=== PATIENT | female | born 1985 | race Caucasian/White ===

== ENCOUNTER 2016-06-09 12:04 | Emergency (ER) | payer SELFPAY ==
--- NOTE | 2016-06-09 12:13 | ER Document Report ---
ED Medical Screen (RME) - General Stated Complaint: TOOTH ACHE Mode of Arrival: Ambulatory Information source: Patient Notes: Patient presents to the emergency department with left-sided lower dental pain since . She reports she bit down on a chicken wing and cracked her molar. She reports she's been using Orajel since that time. She now reports pain is making her vomit. Troy goldman I have greeted and performed a rapid initial assessment of this patient. A comprehensive ED assessment and evaluation of the patient, analysis of test results and completion of the medical decision making process will be conducted by additional ED providers. TRAVEL OUTSIDE OF THE [place] IN LAST 30 DAYS: No - Related Data Allergies/Adverse Reactions: diphenhydramine HCl [From Benadryl] Allergy (Verified 11/27/15 13:26) Penicillins Allergy (Verified 11/27/15 13:26) Past Medical History Neurological Medical History: Denies: Hx Seizures GI Medical History: Reports: Hx Gastritis, Hx Gastroesophageal Reflux Disease, Hx Ulcer, Hx Endoscopy Musculoskeltal Medical History: Reports Hx Musculoskeletal Deformity, Reports Hx Musculoskeletal Trauma Traumatic Medical History: Reports: Hx Fractures - Multiple Past Surgical History: Reports: Hx Section - 2005, Hx Dilation and Curettage, Hx Orthopedic Surgery - Finger surgery for broken finger - Immunizations Immunizations up to date: Yes Hx Diphtheria, Pertussis, Tetanus Vaccination: Yes - 2014 Physical Exam - Vital signs Vitals: Temp Pulse Resp BP Pulse Ox 99.3 F 86 18 138/81 H 98 06/09/16 12:08 06/09/16 12:08 06/09/16 12:08 06/09/16 12:08 06/09/16 12:08 Course - Vital Signs Vital signs: Temp Pulse Resp BP Pulse Ox 99.3 F 86 18 138/81 H 98 06/09/16 12:08 06/09/16 12:08 06/09/16 12:08 06/09/16 12:08 06/09/16 12:08
--- NOTE | 2016-06-09 13:08 | ER Document Report ---
ED Oral Problem - General Chief Complaint: Toothache Stated Complaint: TOOTH ACHE Time seen by provider: 13:04 Mode of Arrival: Ambulatory Information source: Patient Notes: 30 Female presents to ED for left lower wisdom tooth pain since . She states that she bit down on a chicken bone and cracked premolar. She's been using Orajel and ibuprofen since then. States now the pain is to the point that it makes her nauseated. TRAVEL OUTSIDE OF THE [place] IN LAST 30 DAYS: No - HPI Patient complains to provider of: Toothache Onset: Other - states the pain started but she broke the tooth 6 months ago Onset: Gradual Quality of pain: Sharp, Throbbing Severity: Moderate Pain Level: 4 Associated symptoms: Toothache Worsened by: Cold Relieved by: Nothing Similar symptoms previously: Yes Recently seen / treated by doctor/dentist: No - Related Data Allergies/Adverse Reactions: diphenhydramine HCl [From Benadryl] Allergy (Verified 06/09/16 12:11) Penicillins Allergy (Verified 06/09/16 12:11) Past Medical History - General Information source: Patient - Social History Smoking Status: Never Smoker Cigarette use (# per day): No Chew tobacco use (# tins/day): No Smoking Education Provided: No Frequency of alcohol use: None Drug Abuse: Marijuana Occupation: management Lives with: Alone Family History: Malignancy Patient has suicidal ideation: No Patient has homicidal ideation: No - Past Medical History Cardiac Medical History: Reports: None Pulmonary Medical History: Reports: None EENT Medical History: Reports: None Neurological Medical History: Reports: None Endocrine Medical History: Reports: None Renal/ Medical History: Reports: None Malignancy Medical History: Reports: None GI Medical History: Reports: Hx Gastritis, Hx Gastroesophageal Reflux Disease, Hx Ulcer, Hx Endoscopy Musculoskeltal Medical History: Reports Hx Musculoskeletal Deformity, Reports Hx Musculoskeletal Trauma Skin Medical History: Reports None Psychiatric Medical History: Reports: None Traumatic Medical History: Reports: Hx Fractures - Multiple Infectious Medical History: Reports: None Past Surgical History: Reports: Hx Section - 2006, Hx Dilation and Curettage, Hx Orthopedic Surgery - Finger surgery for broken finger - Immunizations Immunizations up to date: Yes Hx Diphtheria, Pertussis, Tetanus Vaccination: Yes - 2014 Review of Systems - Review of Systems Constitutional: No symptoms reported EENT: Dental problem Cardiovascular: No symptoms reported Respiratory: No symptoms reported Gastrointestinal: No symptoms reported Genitourinary: No symptoms reported Female Genitourinary: No symptoms reported Musculoskeletal: No symptoms reported Skin: No symptoms reported Hematologic/Lymphatic: No symptoms reported Neurological/Psychological: No symptoms reported -: Yes All other systems reviewed and negative Physical Exam - Vital signs Vitals: Temp Pulse Resp BP Pulse Ox 99.3 F 86 18 138/81 H 98 06/09/16 12:08 06/09/16 12:08 06/09/16 12:08 06/09/16 12:08 06/09/16 12:08 Interpretation: Normal - General General appearance: Appears well, Alert - HEENT Head: Normocephalic, Atraumatic Eyes: Normal Pupils: PERRL Ears: Normal External canal: Normal Tympanic membrane: Normal Sinus: Normal Nasal: Normal Mouth/Lips: Normal Teeth diagram: 1 - Part of tooth broken off minimal redness surrounding the tooth no abscess noted Pharynx: Normal Neck: Normal - Respiratory Respiratory status: No respiratory distress Chest status: Nontender Breath sounds: Normal Chest palpation: Normal - Cardiovascular Rhythm: Regular Heart sounds: Normal auscultation Murmur: No - Abdominal Inspection: Normal Distension: No distension Bowel sounds: Normal Tenderness: Nontender Organomegaly: No organomegaly - Back Back: Normal, Nontender - Extremities General upper extremity: Normal inspection, Nontender, Normal color, Normal ROM , Normal temperature General lower extremity: Normal inspection, Nontender, Normal color, Normal ROM , Normal temperature, Normal weight bearing. No: Doron's sign - Neurological Neuro grossly intact: Yes Cognition: Normal Orientation: AAOx4 Uday Coma Scale Eye Opening: Spontaneous [place] Coma Scale Verbal: Oriented Uday Coma Scale Motor: Obeys Commands [place] Coma Scale Total: 15 Speech: Normal Motor strength normal: LUE, RUE, LLE, RLE Sensory: Normal - Psychological Associated symptoms: Normal affect, Normal mood - Skin Skin Temperature: Warm Skin Moisture: Dry Skin Color: Normal Course - Re-evaluation Re-evalutation: 06/09/16 13:52 Patient states she does not have a lot of money for medicine she states she is allergic to penicillin when I told her that clindamycin is expensive but Keflex at third of fourth generation penicillin she states she hurt her Keflex before and she's taken that before. I told her that I could write her some Irvine which is hydrocodone and she stated that that would be good. Then she told the nurse that she was allergic to Irvine made her sick so I offered to give her some Phenergan to go with the Irvine. Then she stated she did not want a nausea medicine to go with her Irvine she wanted a pain medicine that would not make her sick I told her she could take ibuprofen 10. She states she's already been taken that. Then she decided that the she is allergic to Keflex which she had early told me that she was not allergic to. I explained to her that just because she is allergic to penicillin does not mean you will allergic to Keflex. I said if she had a anaphylactic reaction to penicillin that I would not give her the Keflex otherwise I could write a thickened clindamycin but it was much more expensive she states she could not afford the clindamycin. I had Dr. Hobbs go in and talk with the patient. - Vital Signs Vital signs: Temp Pulse Resp BP Pulse Ox 98 F 68 20 128/88 H 100 06/09/16 14:08 06/09/16 14:08 06/09/16 14:08 06/09/16 14:08 06/09/16 14:08 Discharge - Discharge Clinical Impression: Pain due to dental caries Condition: Stable Disposition: HOME, SELF-CARE Additional Instructions: TOOTHACHE: Your pain is due to dental decay. The tooth must be repaired in order for you to feel better. You will, therefore, be referred to a dentist. We do not have dentists on the staff at [facility]. Severe swelling or drainage around a tooth usually means a dental abscess. This also requires evaluation and treatment by the dentist, but antibiotics may be prescribed while awaiting dental treatment. You should be rechecked immediately if you develop major swelling of the face, increasing pain, a lump in the jaw or gums, headache, difficulty swallowing, or fever. ORAL NARCOTIC MEDICATION: You have been given a prescription for pain control. This medication is a narcotic. It's best taken with food, as nausea can result if taken on an empty stomach. Don't operate machinery or drive within six hours of taking this medication. Do not combine this medicine with alcohol, or with any medication which can cause sedation (such as cold tablets or sleeping pills) unless you get permission from the physician. Narcotics tend to cause constipation. If possible, drink plenty of fluids and eat a diet high in fiber and fruits. Please be aware that prescription narcotics also have the potential for abuse. People become addicted to these medications because of the general sense of wellbeing that they induce. This feeling along with a significant reduction in tension, anxiety, and aggression provides a stimulating seductive quality to these drugs. Once your pain is under control, we encourage you to discard your unused narcotics. Cephalexin The antibiotic you've been prescribed is a member of the cephalosporin class. This type of antibiotic covers a wide variety of infections, including those of the skin, lungs, and urinary tract. It's useful for staph infections. This antibiotic is slightly similar to the penicillin family. In rare cases , a person who is allergic to penicillin will also be allergic to this medication. If you have had a severe allergic reaction to penicillin, and have not taken this antibiotic since that time, notify your doctor. Antibiotics which cover many germs ("broad spectrum" antibiotics) are more likely to cause diarrhea or "yeast" infections. Women prone to vaginal yeast problems may suffer an attack after taking this antibiotic. In infants, oral thrush (white spots "stuck" on the cheek) or yeast diaper rash may result. See your doctor if these problems occur. Call at once if you develop itching, hives , shortness of breath, or lightheadedness. FOLLOW-UP CARE: You have been referred for follow-up care to the dentists listed below. Call the dentists office for an appointment as you were instructed or within the next two days. If you experience worsening or a significant change in your symptoms, notify the physician immediately or return to the Emergency Department at any time for re-evaluation. [facility] [address] [place] [address] [facility] [address] [facility] [place] [id number] [facility] [address] [place] [facility] [address] [place] [email or web address] [address] [place] [address] Friday- 8:00am to 5:00 pm Will see patients from other [facility]. Charges based on income and family size and accepts Medicare, Medicaid, and Insurances Will pull molars [facility] [id number] Hours of Operation 8:00 am - 4:30 pm weekdays The following dental offices accept Medicaid: [facility] Dr. Ku[address] Dr. Gomez Dr. Bee Jesus Alberto Blackburn, Malena, and Dilip oral surgery Dr. Zabala ([place]) Dr. Hubbard ([place]) [facility] Drs. Damon and Pasha ([place]) Dr. Gonzalez ([place]) [facility] Dr. Kelley ([place]) Drs. Mirza and ([address]) Medicaid Care Line Prescriptions: Hydrocodone/Acetaminophen [Irvine 5-325 mg Tablet] 1 tab PO Q6HP PRN #15 tablet PRN Reason: Cephalexin Monohydrate [Keflex 500 mg Capsule] 500 mg PO QID #20 capsule Promethazine HCl [Phenergan 25 mg Tablet] 25 mg PO Q6H PRN #15 tablet PRN Reason: Forms: Elevated Blood Pressure, Return to Work
[2016-06-09] MEDS ORDERED: HYDROCODONE/ACETAMINOPHEN 5-325 MG 6 TAB/DSPK PO PRN (14:01)
[2016-06-09 14:13] VITALS: BP 128/88
== END 2016-06-09 14:15 | disposition home or self-care (01) ==
LOC: ER 12:04
DX: K02.9 Dental caries, unspecified (principal); K08.89 Other specified disorders of teeth and supporting structures; R11.0 Nausea; Z88.8 Allergy status to other drugs, medicaments and biological substances; Z88.0 Allergy status to penicillin
CPT/HCPCS: 99282

== ENCOUNTER 2017-07-30 | Emergency (ER) | payer SELFPAY ==
--- NOTE | 2017-07-30 10:25 | ER Document Report ---
HPI - HPI Patient complains to provider of: Toothache Pain Level: 5 Context: Patient is a 31-year-old healthy female presenting with a toothache to her left lower rear molar. Patient reports that she chipped that tooth about 2 years ago but the pain has intensified over the past 3-4 days. Patient reports that she has an upcoming dental appointment but it is scheduled for a month away. Patient is using [id number] Anbesol with some relief. There is no fever or facial swelling Associated Symptoms: None Exacerbated by: Food Relieved by: Denies Similar symptoms previously: No Recently seen / treated by doctor: No - ROS Systems Reviewed and Negative: Yes All other systems reviewed and negative - REPRODUCTIVE Reproductive: DENIES: : Past Medical History - General Information source: Patient - Social History Smoking Status: Never Smoker Chew tobacco use (# tins/day): No Frequency of alcohol use: None Drug Abuse: None Lives with: Family Family History: Arthritis, CAD, Hyperlipidemia, Hypertension, Malignancy. denies: COPD, CVA, DM, Thyroid Disfunction Patient has suicidal ideation: No Patient has homicidal ideation: No Neurological Medical History: Denies: Hx Seizures Renal/ Medical History: Denies: Hx Peritoneal Dialysis GI Medical History: Reports: Hx Gastritis, Hx Gastroesophageal Reflux Disease, Hx Ulcer, Hx Endoscopy Musculoskeltal Medical History: Reports Hx Musculoskeletal Deformity, Reports Hx Musculoskeletal Trauma Traumatic Medical History: Reports: Hx Fractures - Multiple Past Surgical History: Reports: Hx Section - 2005, Hx Dilation and Curettage, Hx Genitourinary Surgery - D & C, Hx Orthopedic Surgery - Finger surgery for broken finger - Immunizations Immunizations up to date: Yes Hx Diphtheria, Pertussis, Tetanus Vaccination: Yes - 2014 Vertical Provider Document - CONSTITUTIONAL Agree With Documented VS: Yes - INFECTION CONTROL TRAVEL OUTSIDE OF THE [place] IN LAST 30 DAYS: No - HEENT HEENT: Atraumatic, PERRLA Mouth Diagram: 1 - tooth #17 broken, + decay. no gingival edema or abscess appreciated - NECK Neck: Normal Inspection. negative: Lymphadenopathy-Left, Lymphadenopathy-Right - RESPIRATORY Respiratory: Breath Sounds Normal - CARDIOVASCULAR Cardiovascular: Regular Rate, Regular Rhythm - NEURO Level of Consciousness: Awake, Alert, Appropriate Course - Re-evaluation Re-evalutation: 07/30/17 10:23 History and physical are consistent with an uncomplicated dental pain. There is no sign of dental abscess, Shaw's angina or peritonsillar abscess. There is no cervical or submandibular lymphadenopathy. Patient is nontoxic with stable vital signs. Patient is afebrile. I will provide a course of antibiotics and ibuprofen for pain. I am prescribing Zithromax due to patient' s penicillin allergy and lack of insurance. Patient is instructed to follow-up with dental for further evaluation. Home care, dental follow-up and return ED precautions were discussed. Patient is agreeable with plan and is stable for discharge 07/30/17 10:26 - Vital Signs Vital signs: Temp Pulse Resp BP Pulse Ox 98.7 F 93 16 135/75 H 98 07/30/17 09:43 07/30/17 09:43 07/30/17 09:43 07/30/17 09:43 07/30/17 09:43 Discharge - Discharge Clinical Impression: Pain, dental Condition: Stable Disposition: HOME, SELF-CARE Instructions: Toothache ([facility]), Ibuprofen (General) ([facility]) Additional Instructions: I am prescribing an antibiotic for possible infection and ibuprofen for the discomfort I recommend [id number] dental wax/temporary filling to cover the tooth and protect any exposed nerves Please follow-up with dental as soon as possible for further evaluation and treatment Prescriptions: Azithromycin [Zithromax 250 mg Tablet] 250 mg PO ASDIR #6 tablet Ibuprofen [Motrin 800 Mg Tablet] 800 mg PO Q6H #20 tablet
== END 2017-07-30 10:45 | disposition home or self-care (01) ==
DX: K08.89 Other specified disorders of teeth and supporting structures (principal)
CPT/HCPCS: 99282